=== PATIENT | male | born 1955 | race Caucasian/White ===

== ENCOUNTER 2019-05-05 00:45 | Day surgery (SDC) | payer MEDICARE, SELFPAY ==
[2019-05-04 10:08] VITALS: BMI 26.5
--- NOTE | 2019-05-04 17:42 | WPDANESEPP ---
Anes - Eval Pre Procedure Procedure: Operation Date: 05/05/19 08:30 Proposed Procedures p Screening Colonoscopy - Davey Chen MD Date/Time: 05/04/19 17:42 Pre Op Diagnosis: Neoplasm Screening Patient Data Age: 64 Gender: M Height: 1.78 m Weight: 84 kg Allergies Allergy/AdvReac Type Severity Reaction Status Date / Time No Known Allergies Allergy Unverified 05/04/19 10:03 Home Medications Medication Instructions Recorded Confirmed Type [place]-3 1 cap PO DAILY 05/04/19 05/04/19 History ascorbic acid (vitamin C) 500 mg PO DAILY 05/04/19 05/04/19 History geriatric jttadtuu-oxwl-khub 1 tablet PO DAILY 05/04/19 05/04/19 History glucos sul 1UCc-oeq-bzxju-C-Mn 1 cap PO DAILY 05/04/19 05/04/19 History [Glucosamine Chondroitin] honey 1 dose PO DAILY 05/04/19 05/04/19 History Patient hx anesthesia problems: none Family hx anesthesia problems: none Exam Day of Procedure 05/04/19 17:42
[2019-05-05 07:14] VITALS: BP 157/93; PULSE 92; RESP 16; TEMP 36.6; O2SAT 96
[2019-05-05] MEDS: LACTATED RINGERS 1,000 ML 150 ML IV CONT (07:33)
--- NOTE | 2019-05-05 08:23 | P.PNAN_ITS ---
Anes - Initial Pre Proc Eval Procedure: Operation Date: 05/05/19 08:30 Proposed Procedures p Screening Colonoscopy - Davey Chen MD Date/Time: 05/05/19 08:23 Surgeon: Davey Chen MD Pre Op Diagnosis: Neoplasm Screening Patient Data Age: 64 Gender: M Height: 5 ft 10 in Weight: 84.1 kg Last Vital Signs Temp 97.9 F 05/05/19 07:14 Pulse 92 05/05/19 07:14 Resp 16 05/05/19 07:14 BP 157/93 H 05/05/19 07:14 Pulse Ox 96 05/05/19 07:14 Allergies Allergy/AdvReac Type Severity Reaction Status Date / Time No Known Allergies Allergy Unverified 05/05/19 07:13 Home Medications Medication Instructions Recorded Confirmed Type [place]-3 1 cap PO DAILY 05/04/19 05/05/19 History ascorbic acid (vitamin C) 500 mg PO DAILY 05/04/19 05/05/19 History geriatric sazeqedo-skfc-uhey 1 tablet PO DAILY 05/04/19 05/05/19 History glucos sul 0EZb-bqo-ixebu-C-Mn 1 cap PO DAILY 05/04/19 05/05/19 History [Glucosamine Chondroitin] honey 1 dose PO DAILY 05/04/19 05/05/19 History Patient hx anesthesia problems: none Family hx anesthesia problems: none PMFSH Social History Social History (Updated 05/05/19 @ 08:22 by Elvin Anderson MD) Smoking packs per day: 0.75 Smoking cigarettes per day: 15.0 Years smoked: 25 Smoking pack-years: 18.75 Smoking status: Former smoker Alcohol intake: former Anes - Eval Final PreProcedure Day of Procedure 05/05/19 08:23 Patient weight: normal Heart: regular rate and rhythm Lungs: clear to auscultation Airway: Mallampati scale class II Neurological: alert and oriented Last oral intake: >/= 8 hours ASA classification: II Emergent: no Anesthetic plan: proceed Anesthesia type and monitoring: general GIVS and standard monitoring Informed Consent: The patient's anesthetic plan and its attendant risks and benefits were discussed with the patient/family/POA. Questions were solicited and answers provided to the satisfaction of the patient/family/POA.
--- NOTE | 2019-05-05 08:35 | PM.HPGS ---
History of Present Illness History of Present Illness Consent: Risks, benefits, and alternatives have been discussed and questions answered. Patient agrees to proceed with procedure. Chief complaint: Neoplasm Screening Narrative: Yoandy Winston is a 64 year old male here for screening colonoscopy, never had one. Review of Systems Constitutional: Constitutional: Denies headache(s) and Denies weakness Eyes: Eyes: Denies blurry vision ENT: Reports Normal hearing present, Denies headache(s) and Denies neck pain Cardiovascular: Cardiovascular: Denies chest pain and Denies dyspnea Respiratory: Respiratory: Denies dyspnea Gastrointestinal: Gastrointestinal: Reports no additional gastrointestinal complaints Genitourinary: Genitourinary: Denies dysuria Musculoskeletal: Musculoskeletal: Denies neck pain Integumentary/Breasts: Skin/Breast: Denies dry skin Neurologic: Reports Normal hearing present, Denies headache(s) and Denies weakness Psychiatric: Psychiatric: Denies anxiety Endocrine: Endocrine: Denies change in body appearance Hematologic/Lymphatic: Hematologic/Lymphatic: Denies easy bleeding Allergic/Immunologic: Allergic/Immunologic: Denies urticaria [facility] Social History Social History (Updated 05/05/19 @ 08:22 by Elvin Anderson MD) Smoking packs per day: 0.75 Smoking cigarettes per day: 15.0 Years smoked: 25 Smoking pack-years: 18.75 Smoking status: Former smoker Alcohol intake: former Meds Home Medications and Allergies Home Medications Medication Instructions Recorded Confirmed Type [place]-3 1 cap PO DAILY 05/04/19 05/05/19 History ascorbic acid (vitamin C) 500 mg PO DAILY 05/04/19 05/05/19 History geriatric lngnfoyi-hzhp-uzot 1 tablet PO DAILY 05/04/19 05/05/19 History glucos sul 3YDq-bmu-cuqdv-C-Mn 1 cap PO DAILY 05/04/19 05/05/19 History [Glucosamine Chondroitin] honey 1 dose PO DAILY 05/04/19 05/05/19 History Allergies Allergy/AdvReac Type Severity Reaction Status Date / Time No Known Allergies Allergy Unverified 05/05/19 07:13 Vital Signs Vital Signs - 24 hr 05/05/19 07:14 Temperature 97.9 F Pulse Rate 92 Respiratory Rate 16 Blood Pressure 157/93 H Pulse Oximetry 96 Exam Const: General: comfortable and no acute distress HENMT: General nose exam: Normal nares present Eyes: General: appearance normal, both eyes and all related structures Neck: Neck: no JVD Resp: Auscultation: clear to auscultation bilaterally Cardio: Rate: regular rate Rhythm: regular rhythm GI: Inspection: non-distended GI Palp: Yes Soft to palpation Skin: General skin exam: normal color Neuro: General: gait normal Speech: normal speech Extrem: General: normal to inspection Psych: Mental Status: mental status grossly normal Assessment and Plan Assessment and plan (1) Colon cancer screening: Code(s): Z12.11 - Encounter for screening for malignant neoplasm of colon Status: Acute Assessment and Plan: will proceed with colonoscopy (2) GERD (gastroesophageal reflux disease): Qualifiers: Esophagitis presence: esophagitis presence not specified Qualified Code(s): K21.9 - Gastro-esophageal reflux disease without esophagitis Code(s): K21.9 - Gastro-esophageal reflux disease without esophagitis Status: Acute
[2019-05-05 08:51] VITALS: BP 122/67; PULSE 72; RESP 20; O2SAT 95
[2019-05-05 09:01] VITALS: BP 131/74; PULSE 68; RESP 20; O2SAT 95
[2019-05-05 09:11] VITALS: BP 155/94; PULSE 70; RESP 20; O2SAT 99
== END 2019-05-05 09:22 | disposition home or self-care (01) ==
PROVIDERS: PCP Internal Medicine; Visit Provider Internal Medicine Gastroenterology
PROC: 0DJD8ZZ Inspection of Lower Intestinal Tract, Via Natural or Artificial Opening Endoscopic (ICD-10-PCS; CPT 45378; principal; 2019-05-05 08:30)
DX: Z12.11 Encounter for screening for malignant neoplasm of colon (principal); D12.2 Benign neoplasm of ascending colon; K57.30 Diverticulosis of large intestine without perforation or abscess without bleeding; K64.8 Other hemorrhoids
CPT/HCPCS: 45385; 88305; J2704; J7120

== ENCOUNTER 2022-10-12 07:22 | Outpatient (CLI) | payer MEDICARE, SELFPAY ==
--- NOTE | ~2022-10-12 | CT_ITS ---
CT Scan of the Chest without Contrast: Clinical Indication: Lung cancer screening, personal history of nicotine dependence Technique: Contiguous sections were acquired throughout the chest without intravenous contrast. Dose reduction technique was used on this scan by utilizing automated exposure control and iterative recon struction technique. The dose-length product (DLP) was 121.43 mGy-cm. Findings: There is no evidence of any significant mediastinal, hilar or axillary lymphadenopathy. Small calcifi ed left hilar lymph nodes are present. The mediastinal soft tissues appear normal. There is no evidence of pleural or pericardial effusion. Calcified left lower lobe granuloma noted. No other pulmonary nodule identified. Images through the upper abdomen reveal multiple gallstones. Impression: Lung RADS 2: Benign appearance. 12 month follow-up screening CT advised. Cholelithiasis. Reviewed, dictated and finalized at [facility]. Impression: Lung RADS 2: Benign appearance. 12 month follow-up screening CT advised. Cholelithiasis.
--- NOTE | ~2022-10-12 | US_ITS ---
Ultrasound of the Abdominal Aorta INDICATION: Abdominal aortic aneurysm, smoking history TECHNIQUE: Grayscale, color Doppler, and pulsed Doppler images of the aorta and common iliac arteries were obtained. COMPARISON: None. FINDINGS: Maximum vascular dimensions are as follows: Proximal aorta: 2.2 cm Mid aorta: 2.1 cm Distal aorta: 2.0 cm Right common iliac artery: 1.2 cm Left common iliac artery: 1.3 cm There is no evidence of abdominal aortic aneurysm. IMPRESSION: No evidence of abdominal aortic aneurysm. Reviewed, dictated and finalized at location M.
== END 2022-10-12 07:23 | disposition home or self-care (01) ==
PROVIDERS: PCP Family Medicine; Visit Provider Family Medicine
DX: Z12.2 Encounter for screening for malignant neoplasm of respiratory organs (principal); Z87.891 Personal history of nicotine dependence
CPT/HCPCS: 71271; 76775

== ENCOUNTER 2023-11-12 14:35 | Outpatient (CLI) | payer MEDICARE, SELFPAY ==
--- NOTE | ~2023-11-12 | CT_ITS ---
EXAMINATION: CT lung screening DATE: 11/12/2023 14:54 INDICATION: Z87.891 - Personal history of nicotine dependence TECHNIQUE: Computed tomography (CT) of the chest was performed without intravenous contrast. Addition al 3D reconstructions utilizing coronal maximum intensity projection (MIP) were performed. Automated exposure control and iterative reconstruction technique were employed. The dose-length product was 10 9.22 mGy-cm. COMPARISON: 10/12/2022 FINDINGS: Calcified left lower lobe nodule and calcified left hilar lymph nodes consistent with old granulomato us disease. Unchanged 2 mm noncalcified left upper lobe nodule. No new or enlarging pulmonary nodule, pneumonia, pulmonary edema or pleural effusion. Heart size is normal. No pericardial effusion. Thora cic aorta is normal in caliber. No pathologically enlarged thoracic lymphadenopathy. Central gallston es in the normal-appearing gallbladder. Moderate to severe thoracic spondylosis. IMPRESSION: 1. Lung-RADS category 2: Benign appearance or behavior. Continue annual screening with noncontrast lo w-dose chest CT in 12 months. 2. Cholelithiasis. Reviewed, dictated and finalized at location [facility]. IMPRESSION: 1. Lung-RADS category 2: Benign appearance or behavior. Continue annual screeni ng with noncontrast low-dose chest CT in 12 months. 2. Cholelithiasis.
== END 2023-11-12 14:36 | disposition home or self-care (01) ==
LOC: ANHIMG 14:38
PROVIDERS: PCP Family Medicine; Visit Provider Family Medicine
DX: Z12.2 Encounter for screening for malignant neoplasm of respiratory organs (principal); Z87.891 Personal history of nicotine dependence; K80.20 Calculus of gallbladder without cholecystitis without obstruction
CPT/HCPCS: 71271

== ENCOUNTER 2024-08-14 00:08 | Day surgery (SDC) | payer MEDICARE, SELFPAY ==
[2024-08-06 11:01] VITALS: BMI 25.9
[2024-08-14 06:27] VITALS: BP 139/86; PULSE 65; RESP 16; TEMP 35.9; O2SAT 99
[2024-08-14] MEDS: LACTATED RINGERS 1,000 ML 150 ML IV CONT (06:29)
--- NOTE | 2024-08-14 07:12 | WPDANESEPPF ---
Anes - Initial Pre Proc Eval Procedure: Operation Date: 08/14/24 07:30 Proposed Procedures p Screening Colonoscopy - Davey Chen MD Date/Time: 08/14/24 07:12 Surgeon: Davey Chen MD Pre Op Diagnosis: Screening Patient Data Age: 69 Gender: M Height: 1.78 m Weight: 80 kg Last Vital Signs Temp 35.9 C L 08/14/24 06:27 Pulse 65 08/14/24 06:27 Resp 16 08/14/24 06:27 BP 139/86 08/14/24 06:27 Pulse Ox 99 08/14/24 06:27 O2 Del Method Room Air 08/14/24 06:27 Allergies Allergy/AdvReac Type Severity Reaction Status Date / Time No Known Allergies Allergy Verified 08/14/24 06:15 Home Medications ?Medication ?Instructions ?Recorded ?Confirmed ?Type [place]-3 1 cap PO DAILY 05/04/19 08/14/24 History ascorbic acid (vitamin C) 500 mg 500 mg PO DAILY 05/04/19 08/14/24 History tablet honey 1 dose PO DAILY 05/04/19 08/14/24 History testosterone (AndroGel) 2 pump topical DAILY #75 grams 02/18/24 08/14/24 Rx valsartan 160 mg tablet See Rx Instructions .Route 03/13/24 08/14/24 Rx .COMPLEX #90 tabs valacyclovir 1 gram tablet 2,000 mg (2 x 1 gram) PO Q12H #4 04/27/24 08/14/24 Rx tabs fenofibrate 160 mg tablet See Rx Instructions .Route 07/01/24 08/14/24 Rx .COMPLEX #90 tabs levothyroxine 75 mcg tablet 75 mcg PO DAILY #90 tabs 07/27/24 08/14/24 Rx Patient hx anesthesia problems: none Family hx anesthesia problems: none Results Review: All pre-operative results and documents have been reviewed as part of the pre-operative evaluation. [facility] Past Medical History Medical History Hypogonadism in male Hypothyroidism Fatigue GERD (gastroesophageal reflux disease) Colon cancer screening Social History Social History Smoking packs per day: 0.75 Smoking cigarettes per day: 15.0 Years smoked: 25 Smoking pack-years: 18.75 Smoking status: Former smoker Tobacco type: cigarettes Alcohol intake: former Substance use: current Substance use type: marijuana Lack of Transportation: No Lack of Food: Sometimes True Current Housing: I Have Housing Concerned About Future Housing: No Difficulty Paying Gas/Electric Bills: No Difficulty Paying for Meds: No Currently Unemployed: No Education: High School Diploma/GED Difficulty w/ Childcare or Family Care: No Anes - Eval Final PreProcedure Day of Procedure 08/14/24 07:12 Patient weight: normal Heart: regular rate and rhythm Lungs: clear to auscultation Airway: Mallampati scale class II Neurological: alert and oriented Last oral intake: >/= 8 hours ASA classification: II Emergent: no Anesthetic plan: proceed Anesthesia type and monitoring: general GIVS and standard monitoring Results Review: All pre-operative results and documents have been reviewed as part of the pre-operative evaluation. Informed Consent: The patient's anesthetic plan and its attendant risks and benefits were discussed with the patient/family/POA. Questions were solicited and answers provided to the satisfaction of the patient/family/POA.
--- NOTE | 2024-08-14 07:25 | PM.HPGS ---
History of Present Illness History of Present Illness Consent: Risks, benefits, and alternatives have been discussed and questions answered. Patient agrees to proceed with procedure. Chief complaint: Screening Narrative: Yoandy Winston is a 69 year old male with colon polyp in 2019 Review of Systems Review of Systems: All systems reviewed & are unremarkable except as noted in HPI and below PMFSH Past Medical History Medical History (Updated 08/14/24 @ 07:26 by Davey Chen MD) Colon polyp Hypogonadism in male Hypothyroidism Fatigue GERD (gastroesophageal reflux disease) Colon cancer screening Social History Social History Smoking packs per day: 0.75 Smoking cigarettes per day: 15.0 Years smoked: 25 Smoking pack-years: 18.75 Smoking status: Former smoker Tobacco type: cigarettes Alcohol intake: former Substance use: current Substance use type: marijuana Lack of Transportation: No Lack of Food: Sometimes True Current Housing: I Have Housing Concerned About Future Housing: No Difficulty Paying Gas/Electric Bills: No Difficulty Paying for Meds: No Currently Unemployed: No Education: High School Diploma/GED Difficulty w/ Childcare or Family Care: No Meds Home Medications and Allergies Home Medications ?Medication ?Instructions ?Recorded ?Confirmed ?Type [place]-3 1 cap PO DAILY 05/04/19 08/14/24 History ascorbic acid (vitamin C) 500 mg 500 mg PO DAILY 05/04/19 08/14/24 History tablet honey 1 dose PO DAILY 05/04/19 08/14/24 History testosterone (AndroGel) 2 pump topical DAILY #75 grams 02/18/24 08/14/24 Rx valsartan 160 mg tablet See Rx Instructions .Route 03/13/24 08/14/24 Rx .COMPLEX #90 tabs valacyclovir 1 gram tablet 2,000 mg (2 x 1 gram) PO Q12H #4 04/27/24 08/14/24 Rx tabs fenofibrate 160 mg tablet See Rx Instructions .Route 07/01/24 08/14/24 Rx .COMPLEX #90 tabs levothyroxine 75 mcg tablet 75 mcg PO DAILY #90 tabs 07/27/24 08/14/24 Rx Allergies Allergy/AdvReac Type Severity Reaction Status Date / Time No Known Allergies Allergy Verified 08/14/24 06:15 Vital Signs Vital Signs - 24 hr 08/14/24 06:27 Temperature 96.6 F L Pulse Rate 65 Respiratory Rate 16 Blood Pressure 139/86 Pulse Oximetry 99 Oxygen Delivery Room Air Exam Const: General: comfortable and no acute distress HENMT: Face/Nose/Sinus: Normal nares present Eyes: General: appearance normal, both eyes and all related structures Neck: Neck: no JVD Resp: Auscultation: clear to auscultation bilaterally Cardio: Rate: regular rate Rhythm: regular rhythm GI: Inspection: non-distended GI Palp: Yes Soft to palpation Skin: General skin exam: normal color Neuro: General: gait normal Speech: normal speech Extrem: General: normal to inspection Psych: Mental Status: mental status grossly normal Assessment and Plan Assessment and plan (1) Colon polyp: Code(s): K63.5 - Polyp of colon Status: Acute Assessment and Plan: colonoscopy
[2024-08-14 07:37] VITALS: BP 95/58; PULSE 56; RESP 21; O2SAT 99
[2024-08-14 07:47] VITALS: BP 104/60; PULSE 54; RESP 16; O2SAT 99
[2024-08-14 07:57] VITALS: BP 118/69; PULSE 52; RESP 18; O2SAT 100
== END 2024-08-14 08:05 | disposition home or self-care (01) ==
PROVIDERS: PCP Family Medicine; Referring Provider Family Medicine; Visit Provider Internal Medicine Gastroenterology
PROC: 0DJD8ZZ Inspection of Lower Intestinal Tract, Via Natural or Artificial Opening Endoscopic (ICD-10-PCS; CPT 45378; principal; 2024-08-14 07:30)
DX: Z12.11 Encounter for screening for malignant neoplasm of colon (principal); K57.30 Diverticulosis of large intestine without perforation or abscess without bleeding; K64.8 Other hemorrhoids; Z86.0100 Personal history of colon polyps, unspecified; Z87.891 Personal history of nicotine dependence; F12.90 Cannabis use, unspecified, uncomplicated
CPT/HCPCS: G0105; J2704; J7120

== ENCOUNTER 2025-02-01 16:32 | Outpatient (CLI) | payer MEDICARE, SELFPAY ==
--- NOTE | ~2025-02-01 | CT_ITS ---
CT lung screening INDICATION: Tobacco use. COMPARISON: None. TECHNIQUE: CT examination of the entire thorax without contrast was performed using low dose technique. Thin section axial, sagittal and coronal images were included to increase sensitivity for small lung nodules. FINDINGS: PULMONARY NODULES: No suspicious noncalcified pulmonary nodule. OTHER PULMONARY FINDINGS: No significant nonnodular pleural or parenchymal abnormality is noted. No emphysematous changes are present. No pathologically enlarged lymph nodes are present. Normal heart size. To the limits of this nondedicated CT no significant coronary artery calcifications are seen. UPPER ABDOMEN AND PERIPHERAL SOFT TISSUE: Cholelithiasis is noted. OSSEOUS STRUCTURES: Bone window shows no aggressive blastic or lytic lesions. IMPRESSION: 1. Lung-RADS category 1: No nodules or definitely benign nodules. Recommendations: 1 or 2: Annual screening with low-dose CT in 12 months. 2. No emphysematous changes are present. 3. Incidentally noted is cholelithiasis. All CT scans at this facility are performed using low dose modulation techniques as appropriate to perform exam including the following: automated exposure control; use of iterative reconstruction technique; adjustment of the mA and/or kV according to patient size (this includes techniques or standardized protocols for targeted exams where dose is matched to indication/reason for exam). Reviewed, dictated and finalized at location [facility]. [employer] IMPRESSION: 1. Lung-RADS category 1: No nodules or definitely benign nodules. Recommendations: 1 or 2: Annual screening with low-dose CT in 12 months. 2. No emphysematous changes are present. 3. Incidentally noted is cholelithiasis. All CT scans at this facility are performed using low dose modulation techniqu es as appropriate to perform exam including the following: automated exposure c ontrol; use of iterative reconstruction technique; adjustment of the mA and/or kV according to patient size (this includes techniques or standardized protocol s for targeted exams where dose is matched to indication/reason for exam).
== END 2025-02-01 16:33 | disposition home or self-care (01) ==
PROVIDERS: PCP Family Medicine; Visit Provider Family Medicine
DX: Z12.2 Encounter for screening for malignant neoplasm of respiratory organs (principal); Z87.891 Personal history of nicotine dependence
CPT/HCPCS: 71271